=== PATIENT | female | born 1955 | race Caucasian/White ===

== ENCOUNTER → 2024-03-20 09:19 | Outpatient (REF) | payer OTHER, SELFPAY | LOC: WDC 09:19 | PROVIDERS: ATTENDING PHYSICIAN Obstetrics & Gynecology; FAMILY PHYSICIAN Family Medicine | DX: R92.2 Inconclusive mammogram (principal) | CPT/HCPCS: 76641 ==

== ENCOUNTER → 2024-10-02 06:44 | Outpatient (REF) | payer OTHER, SELFPAY | LOC: HWWDC 06:44 | PROVIDERS: ATTENDING PHYSICIAN Obstetrics & Gynecology; FAMILY PHYSICIAN Family Medicine | DX: Z12.31 Encounter for screening mammogram for malignant neoplasm of breast (principal) | CPT/HCPCS: 77063; 77067 ==

== ENCOUNTER → 2025-03-16 07:43 | Outpatient (REF) | payer OTHER, SELFPAY ==
[2025-03-16 09:33] LABS: % Basophils 0.8 % (0-2); % Eosinophils 6.9 % (0-6); % Immature Granulocytes 0.2 % (0-0.5); % Lymphocytes 23.8 % (20.5-51.1); % Monocytes 9.9 % (1.7-9.3); % Neutrophils 58.4 % (42.2-75.2); Absolute Basophils 0.1 10^3/uL (0-0.2); Absolute Eosinophils 0.4 10^3/uL (0-0.7); Absolute Lymphocytes 1.4 10^3/uL (1.2-3.4); Absolute Monocytes 0.6 10^3/uL (0.1-0.6); Absolute Neutrophils 3.5 10^3/uL (1.4-6.5); Hematocrit 36.6 % (37.0-47.0); Hemoglobin 11.9 g/dL (12.0-16.0); Mean Corp Hgb Conc. 32.5 g/dL (33.0-37.0); Mean Corpuscular Hgb 29.5 pg (27.0-31.0); Mean Corpuscular Volume 90.6 fL (81.0-99.0); Mean Platelet Volume 9.9 fL (7.4-10.4); Nucleated Red Blood Cells % 0 %; Platelet Count 335 10^3/uL (130-400); Red Blood Cell Count 4.04 10^6/uL (4.20-5.40); Red Cell Dist. Width 12.6 % (11.5-14.5)
[2025-03-16 09:47] LABS: ALT (SGPT) 19 U/L (0-35); AST (SGOT) 27 U/L (14-36); Albumin 4.1 g/dl (3.5-5.0); Alkaline Phosphatase 86 U/L (38-126); Blood Urea Nitrogen 26 mg/dl (7-17); Calcium 9.6 mg/dl (8.4-10.2); Carbon Dioxide 27 mmol/L (22-30); Chloride 110 mmol/L (98-107); Glucose 100 mg/dl (70-99); Potassium 4.3 mmol/L (3.5-5.1); Sodium 143 mmol/L (135-145); Total Bilirubin 0.6 mg/dl (0.2-1.3); Total Protein 6.6 g/dl (6.3-8.2); eGFR > 60.00
[2025-03-16 11:08] LABS: Erythrocyte Sed Rate 18 mm/hour (0-20)
== END ==
LOC: HWRAD 07:43
PROVIDERS: ATTENDING PHYSICIAN Internal Medicine Rheumatology; FAMILY PHYSICIAN Family Medicine
DX: M81.0 Age-related osteoporosis without current pathological fracture (principal); M35.3 Polymyalgia rheumatica; Z51.81 Encounter for therapeutic drug level monitoring; Z79.52 Long term (current) use of systemic steroids
CPT/HCPCS: 36415; 77080; 80053; 85025; 85652; 86140

== ENCOUNTER → 2025-03-24 13:11 | Outpatient (REF) | payer OTHER, SELFPAY | LOC: HWRAD 13:11 | PROVIDERS: ATTENDING PHYSICIAN Internal Medicine Rheumatology; FAMILY PHYSICIAN Family Medicine | DX: M35.3 Polymyalgia rheumatica (principal); M79.643 Pain in unspecified hand | CPT/HCPCS: 73130 ==